=== PATIENT | male | born 1945 | race Caucasian/White ===

== ENCOUNTER 2024-03-17 11:06 | Inpatient (IN) ==
[2024-03-17] MEDS: Ondansetron 4 mg VIAL 2 MG/ML 2 ml VIAL IV ONE (11:38)
[2024-03-17] MEDS: Morphine 2 MG/ML SYRINGE IV ONE (11:38)
[2024-03-17] MEDS: Lidocaine 1% VIAL 10 MG/ML 30 ML VIAL INJ ONE (13:18)
[2024-03-17 13:22] LABS: ABS Basophils 0.1 10^3/uL (0.0-0.1); ABS Eosinophils 0.1 10^3/uL (0.0-0.5); ABS Lymphocytes 0.8 10^3/uL (1.0-4.8); ABS Monocytes 0.4 10^3/uL (0.0-1.1); ABS Neutrophils 6.5 10^3/uL (1.5-7.6); ABS Nucleated RBC 0.01 10^3/ul; Eosinophil % 1.1 %; Hematocrit 38.5 % (38-53); Hemoglobin 13.4 g/dL (13.2-16.3); Lymphocyte % 9.8 %; Mean Corpuscular Hemoglobin 33.5 pg (27-33); Mean Corpuscular Hgb Conc 34.7 g/dL (31-36); Mean Corpuscular Volume 96.6 fL (80-97); Mean Platelet Volume 7.6 fL (7.5-11.2); Nucleated Red Blood Cells % 0.1 %/100WBC (0.0-0.8); Platelet Count 127 10^3/uL (150-450); Red Blood Count 3.99 10^6/uL (4.06-5.63); Red Cell Distribution Width 14.5 % (12-17); White Blood Count 7.9 10^3/uL (3.6-10.2)
[2024-03-17 13:37] LABS: Activated Partial Thrombo Time 35.6 seconds (26.0-38.0); INR 1.35 (0.83-1.13)
[2024-03-17] MEDS: Morphine 4 MG/ML VIAL (1 ml) IV ONE (13:47)
[2024-03-17 13:54] LABS: Albumin 4.1 g/dL (3.2-5.2); Albumin/Globulin Ratio 1.8 (1-3); Creatinine, Serum 1.61 mg/dL (0.67-1.17); Globulin 2.3 g/dL (2-4); Total Bilirubin 1.1 mg/dL (0.2-1.0); Total Protein 6.4 g/dL (6.4-8.9)
[2024-03-17] MEDS ORDERED: Senna TAB 8.6 mg TAB PO PRN (14:56)
[2024-03-17] MEDS: Enoxaparin 100 MG/ML SYR SUBCUT SCH (20:36)
[2024-03-18 05:53] LABS: ABS Eosinophils 0.4 10^3/uL (0.0-0.5); ABS Lymphocytes 0.9 10^3/uL (1.0-4.8); ABS Monocytes 0.5 10^3/uL (0.0-1.1); ABS Neutrophils 5.1 10^3/uL (1.5-7.6); Eosinophil % 5.2 %; Hemoglobin 12.5 g/dL (13.2-16.3); Lymphocyte % 13.1 %; Mean Corpuscular Hemoglobin 33.3 pg (27-33); Mean Corpuscular Hgb Conc 34.6 g/dL (31-36); Mean Corpuscular Volume 96.4 fL (80-97); Mean Platelet Volume 7.9 fL (7.5-11.2); Platelet Count 109 10^3/uL (150-450); Red Blood Count 3.74 10^6/uL (4.06-5.63); Red Cell Distribution Width 14.3 % (12-17); White Blood Count 6.9 10^3/uL (3.6-10.2)
[2024-03-18 06:24] LABS: Calcium 8.5 mg/dL (8.6-10.3); Creatinine, Serum 1.61 mg/dL (0.67-1.17); Magnesium 1.5 mg/dL (1.9-2.7); Potassium 4.5 mmol/L (3.5-5.0)
[2024-03-18] MEDS: Mometasone/Formoter 200/5 MDI INH SCH ×2 (07:29→21:40)
[2024-03-18] MEDS: SPIRIVA Respimat (tiotropium) 2.5 mcg/inh Inhaler INH SCH (07:30)
[2024-03-18] MEDS ORDERED: Aspirin EC 81 mg TAB.EC (enteric coated) PO SCH (09:00)
[2024-03-18] MEDS ORDERED: Fluticasone-Salmeterol 250-50 DISKUS NF INH SCH (19:00)
[2024-03-18] MEDS ORDERED: Morphine 2 MG/ML SYRINGE IV PRN (19:54)
[2024-03-18] MEDS ORDERED: Ondansetron 4 mg VIAL 2 MG/ML 2 ml VIAL IV PRN (21:08)
[2024-03-18] MEDS ORDERED: fentaNYL 100 mcg/2 ml 50 MCG/ML VIAL IV PRN (21:08)
[2024-03-18] MEDS ORDERED: Naloxone 0.4 mg VIAL 0.4 mg/ml 1 ml VIAL IV PRN (21:08)
[2024-03-18] MEDS ORDERED: Metoclopramide 5 MG/ML VIAL (10 mg) IV PRN (21:08)
[2024-03-18] MEDS ORDERED: NS 0.45% 1000 ml BAG 1,000 ML IV SCH (22:00)
[2024-03-19] MEDS: Polyethylene Glycol 3350 17 GM PACKET PO SCH (08:00)
[2024-03-19] MEDS ORDERED: Clindamycin 900 MG/50 **NS BAG 900 MG/50 ML BAG ONE (08:07)
[2024-03-19] MEDS ORDERED: fentaNYL 100 mcg/2 ml 50 MCG/ML VIAL ONE (08:11)
[2024-03-19] MEDS ORDERED: Bupivacaine 0.5% SDV PF 30ML VIAL ONE (08:26)
[2024-03-19] MEDS ORDERED: Rocuronium 50 mg VIAL 10 mg/ml 5 ml VIAL (50 mg) ONE (08:27)
[2024-03-19] MEDS ORDERED: HYDROmorphone 0.5 MG/0.5 ML SYRINGE ONE (08:51)
[2024-03-19] MEDS ORDERED: Propofol 10 MG/ML 20 ML BTL ONE (08:52)
[2024-03-19] MEDS ORDERED: Ondansetron 4 mg VIAL 2 MG/ML 2 ml VIAL ONE (09:19)
[2024-03-19] MEDS ORDERED: Dexamethasone IV 4 MG/ML VIAL 1 ml VIAL ONE (09:19)
[2024-03-19] MEDS: Lactated Ringers 1000 ml BAG 1,000 ML IV SCH (10:08)
[2024-03-19] MEDS ORDERED: Albuterol 2.5mg/3 ml (0.083%) NEB.SOLN INH ONE (10:18)
[2024-03-19] MEDS: Albuterol 2.5mg/3 ml (0.083%) NEB.SOLN INH ONE (10:20)
[2024-03-19 10:27] LABS: Hematocrit 37.4 % (38-53); Hemoglobin 12.9 g/dL (13.2-16.3)
[2024-03-19] MEDS ORDERED: Polyethylene Glycol 3350 17 GM PACKET PO PRN (11:32)
[2024-03-19] MEDS ORDERED: Magnesium Hydroxide LIQ 30 ML UDC PO PRN (11:32)
[2024-03-19] MEDS ORDERED: Senna TAB 8.6 mg TAB PO PRN (11:32)
[2024-03-19] MEDS: Scopolamine 1 mg/72hr PATCH TRANSDERM ONE (13:28)
[2024-03-19] MEDS: Buffered Lidocaine 1% SYRIN 1 ml INTRADERM ONE (13:29)
[2024-03-19] MEDS: Acetaminophen IV 1 GM/100ML 1,000 MG/100 ML BAG IV ONE (13:29)
[2024-03-19] MEDS: Clindamycin 600 MG/D5W BAG 600 MG/50 ML BAG IV SCH (17:55)
[2024-03-19] MEDS: Magnesium Hydroxide LIQ 30 ML UDC PO SCH (20:37)
[2024-03-20 09:09] LABS: Hematocrit 31.3 % (38-53); Hemoglobin 10.9 g/dL (13.2-16.3); Platelet Count 152 10^3/uL (150-450)
[2024-03-20 09:44] LABS: Calcium 8.3 mg/dL (8.6-10.3); Creatinine, Serum 2.22 mg/dL (0.67-1.17); Potassium 4.7 mmol/L (3.5-5.0)
[2024-03-21 09:03] LABS: Hematocrit 29.5 % (38-53); Hemoglobin 9.8 g/dL (13.2-16.3); Mean Platelet Volume 8.2 fL (7.5-11.2); Platelet Count 161 10^3/uL (150-450)
[2024-03-21 09:21] LABS: Calcium 8.2 mg/dL (8.6-10.3); Creatinine, Serum 2.13 mg/dL (0.67-1.17); Potassium 4.7 mmol/L (3.5-5.0); eGFR CKD-EPI 31.5 (>60)
[2024-03-21 12:40] LABS: Rapid COVID-19 Molecular Undetected (Undetected)
[2024-03-22 10:59] VITALS: BP 134/54
== END 2024-03-22 11:20 | DRG 522 ==
LOC: ED 11:06 → EDHOLD 14:56 → SUATTDRO 14:56 → SSU 16:24
PROVIDERS: ADMIT Internal Medicine; ATTEND Student in an Organized Health Care Education/Training Program